=== PATIENT | male | born 2005 | race Caucasian/White ===

== ENCOUNTER 2023-07-13 08:26 | Emergency (ER) | payer MEDICAID, SELFPAY ==
[2023-07-13 08:27] VITALS: BP 165/73; PULSE 77; RESP 16; TEMP 36.6; O2SAT 100; BMI 28.8
--- NOTE | 2023-07-13 08:37 | EDS_ITS ---
HPI History of Present Illness Chief Complaint: Wound Detail of Chief Complaint: Injury to right index, long and ring finger Informant: patient Occured/Mechanism Mechanism/Context: Yes blunt trauma Onset/Context/Timing Onset: Today and Hours Context: Sudden Onset Timing: Continuous Quality of Pain: Dull and Aching Location: Volar side of right index, long and ring finger Current Severity: Gone Maximum Severity: Moderate Worsened by: Crush injury Relieved by: Nothing Associated Symptoms Associated Symptoms: Negative for Parasthesia, Weakness or Loss of Funtion Narrative Narrative: Patient is a 17-year-old [id number] male presents with crush injury to his right index, long and ring finger. The injury occurred this morning. He had his hand smashed in the door. He denies paresthesia, anesthesia medics. He denies any medical problems. Tetanus Immunization: <5 years Prior similar symptoms: No Recent Illness/Hospitalization: No PFSH PFSH Medical History no medical history no medical history Home Medications NK 07/13/23 [History Last Taken Unknown] Allergy/AdvReac Type Severity Reaction Status Date / Time No Known Allergies Allergy Verified 07/13/23 08:27 Surgical History no surgical history no surgical history Social History (Updated 07/13/23 @ 08:[address] Arnold Nair MD) Smoking Status: Never smoker substance use type: does not use ROS ROS ED Integumentary Reports other Details: Hemorrhagic blister right index and ring finger and laceration right long finger Neurologic Neurologic: Denies paresthesias or weakness Hematologic/Lymphatic Hematologic/Lymphatic: Denies easy bleeding or easy bruising EXAM Physical Exam Const Vital Signs: 07/13/23 08:27 Temperature 97.8 F Temperature Source Temporal Pulse Rate 77 Respiratory Rate 16 Blood Pressure 165/73 H Blood Pressure Mean 103 Pulse Ox 100 Oxygen Delivery Method Room Air Positive well nourished and well developed General Appearance ED: well developed and NAD HEENT Reports moist mucous membranes normocephalic and atraumatic Eyes PERRL and EOMs intact bilaterally Neck full ROM Resp normal respiratory effort Cardio regular rate and regular rhythm Extremity full ROM; Negative for normal to inspection Extremity Narrative: Hemorrhagic blister volar surface right index and ring finger over the middle phalanx. There is a laceration volar surface right long finger that is 2.7 cm in length. The flexor digitorum superficialis and flexor digitorum profundus is intact for the index, long and ring finger. Sensation is normal. Capillary refill is normal. There is no subungual hematoma noted of any finger the extensor indices and extensor commonest tendon are in tact. Median, radial and ulnar function are intact. Neuro oriented x3, CN's II-XII intact bilaterally, no focal motor deficits and no sensory deficits noted Sensorium / Orientation: alert Psych mental status grossly normal Skin Skin Narrative: Described under the extremity portion of the medical record Rashes: no rashes Trauma: Negative for no lacerations or abrasions MDM MDM MDM Narrative Medical decision making narrative: Since patient has full range of motion no soft tissue swelling and no tenderness over the distal, middle or proximal phalanx of the index, long or ring finger imaging was not obtained. Tetanus is up-to-date. Plan anesthetized the right long finger and clean and suture laceration. History & Record Review Additional record(s) reviewed:: No prior records Procedures Other Procedures Procedure(s): The right long finger was anesthetized by digital block. After 10 minutes the wound was cleansed and irrigated with Shur-Clens and normal saline. Using 5-0 Ethilon 6 simple interrupted sutures were placed with good cosmesis he mostasis. Patient tolerated procedure without complication or difficulty. Discharge Plan Triage Chief Complaint: Wound ED Provider: Arnold Nair Dx/Rx/DC Orders Clinical Impression: Contusion of right index finger, Laceration of right middle finger, Contusion of right ring finger without damage to nail, initial encounter, Elevated blood pressure reading without diagnosis of hypertension Instructions: ED Finger Contusion, ED Hypertension, To Be Confirmed, ED Laceration, Hand: All Closures Prescriptions: No Action NK Primary Care Provider: Care Physician,Latoya Primary Referrals: Isis Rivero [Non-Staff] - 10-14 Days suture removal NOT,DEFINED [Non-Staff] - Activity Restrictions/Additional Instructions: 1. Clean wound with peroxide on a Q-tip 3 times a day then apply bacitracin ointment 2. Keep finger clean and dry 3. Wear splint for protection while at work 4. Contact the [facility] for blood pressure check in 1 to 2 weeks Disposition Disposition: Home, Self Care
[2023-07-13] MEDS: Lidocaine 1% (20 ml mdv) 20 ML Vial INFILT (09:41)
[2023-07-13 10:30] VITALS: BP 134/69; PULSE 72; RESP 15; O2SAT 98
== END 2023-07-13 10:33 | disposition home or self-care (01) ==
PROVIDERS: Emergency Provider Emergency Medicine; Visit Provider Emergency Medicine
DX: S61.212A Laceration without foreign body of right middle finger without damage to nail, initial encounter (principal); S67.192A Crushing injury of right middle finger, initial encounter; S60.021A Contusion of right index finger without damage to nail, initial encounter; S67.190A Crushing injury of right index finger, initial encounter; S60.041A Contusion of right ring finger without damage to nail, initial encounter; S67.194A Crushing injury of right ring finger, initial encounter; W23.0XXA Caught, crushed, jammed, or pinched between moving objects, initial encounter; R03.0 Elevated blood-pressure reading, without diagnosis of hypertension
CPT/HCPCS: 12002; 99283